=== PATIENT | male | born 1955 | race Two or more races ===

== ENCOUNTER 2024-01-14 09:45 | Outpatient (AMB) | payer MEDICARE, SELFPAY ==
--- NOTE | 2024-01-14 09:48 | HO.SPINEOV ---
Intake Intake Visit Reasons: neck pain Intake Note: Mr. Cohen is here today c/o Neck pain and upper back pain. Senior Pensions Administrator Required: No Allergies No Known Allergies Allergy (Verified 01/14/24 09:53) Assessment & Plan Assessment & Plan (1) Carpal tunnel syndrome on both sides: Code(s): G56.03 - Carpal tunnel syndrome, bilateral upper limbs (2) Cervical spondylosis: Code(s): M47.812 - Spondylosis without myelopathy or radiculopathy, cervical region Plan Dear colleague Thank you for referring Trey Cohen to the office today with a chief complaint of posterior neck pain and shoulder pain. HPI: This 68-year-old male developed posterior neck pain radiating to shoulders proximally 1 year ago. He denies radiation down his arms. No dexterity loss, no balance problems. He does have numbness of his hands that wakes him up at night. Shaking of his hands improves that symptom. He tried physical therapy for the neck pain without effect. No other therapies were done. PMH: Prediabetic rheumatoid arthritis, hypercholesterolemia Medications: Atorvastatin, methotrexate terazosin, Humira, Trulicity Allergies: NKDA Social history: Nonsmoker Physical Exam: Pleasant male. No restriction of the cervical spine. He points to pain diffusely in the posterior region of his neck. Spurling test is negative. No motor deficits. No sensory deficits. Tinel is positive of the bilateral wrist. No pathological reflexes Radiological Studies: MRI done at [facility] on 09/30/2023 shows diffuse cervical spondylosis, moderate C4-5 spinal stenosis multilevel foraminal stenosis from C3-C7. Impression/Plan: This patient is suffering from diffuse posterior neck pain without symptoms of radiculopathy or myelopathy. I will refer him for cervical injections to address the pain. I will also order an EMG to confirm the diagnosis bilateral carpal tunnel syndrome as the symptoms are constantly waking him up at night. Thank you for allowing me to participate in your patients care. total time spent was 50 minutes in counseling ,coordination of plan, personal review of imaging, surgical decision making and subsequent plan Ramo Pelayo MD, PhD Spine Fellowship Trained Neurosurgeon Director, [facility] Orders: Orders [place] electromyogram (EMG) Today G56.03 - Carpal tunnel syndrome, bilateral upper limbs Referrals Pain Management Referral M47.812 - Spondylosis without myelopathy or radiculopathy, cervical region Coding Level of Care Code New Pt Level 4 (26991) Diagnoses Carpal tunnel syndrome on both sides G56.03 Cervical spondylosis M47.812
== END 2024-01-14 11:21 | disposition home or self-care (01) ==
PROVIDERS: PCP Internal Medicine; Referring Provider Physician Assistant; Visit Provider Neurological Surgery
DX: G56.03 Carpal tunnel syndrome, bilateral upper limbs (principal); M47.812 Spondylosis without myelopathy or radiculopathy, cervical region
CPT/HCPCS: 99204

== ENCOUNTER → 2024-01-14 09:45 | Outpatient (BNVA) | payer MEDICARE, MEDICAID, SELFPAY | PROVIDERS: PCP Internal Medicine; Visit Provider Neurological Surgery | DX: G56.03 Carpal tunnel syndrome, bilateral upper limbs (principal); M47.812 Spondylosis without myelopathy or radiculopathy, cervical region | CPT/HCPCS: 99202 ==

== ENCOUNTER 2024-01-28 09:31 | Outpatient (AMB) | payer MEDICARE, SELFPAY ==
--- NOTE | 2024-01-28 09:33 | A.OFFVIS_ITS ---
Intake Vital Signs 3 01/28/24 09:34 Height 5 ft 11 in Weight 255 lb BMI 35.6 BP 140/82 H Blood Pressure Location Lt brachial Position Sitting Respiration 12 Pulse 88 Pulse Source Pulse Oximeter Pulse Oximetry (%) 96 Oxygen Delivery Method Room Air Intake Visit Reasons: Cervical Spondylosis Allergies No Known Allergies Allergy (Verified 01/28/24 09:46) Medication List - Last Reconciled 01/28/24 by Karina Velez LPN adalimumab (Humira(CF) Pen) 40 mg subcut Q2W atorvastatin 10 mg PO DAILY dulaglutide (Trulicity) mg subcut ergocalciferol (vitamin D2) 1,250 mcg PO QWEEK folic acid 1 mg PO DAILY methotrexate sodium 12.5 mg PO QWEEK sildenafil 100 mg PO tamsulosin 0.4 mg PO QPM HPI Cervical Spondylosis 2 HPI0 Details 68-year-old male who presents today to t he office for evaluation of cervical spondylolysis He reports having posterior neck pain that radiates to the shoulder, which started approximately a year ago. He denies any radiation down the arms. He admits to having numbness in the hands that wakes him up at night. Reports that shaking his hands will improve his symptoms.? He has tried physical therapy for the neck without any benefit. He denies trying any other therapies. He is interested in getting an injection to help with the pain. He describes numbness in the fingers, which he feels is due to carpal tunnel syndrome. He takes methotrexate for rheumatoid arthritis. He reports the pain is the worst at night when he is sleeping and rates it as 8 out of 10; it interferes with his sleep and wakes him up. He is unable to do his daily activities. Physical Exam Vital Signs: Last Vital Signs Pulse 88 01/28/24 09:34 Resp 12 01/28/24 09:34 BP 140/82 H 01/28/24 09:34 Pulse Ox 96 01/28/24 09:34 Oxygen Delivery Method Room Air 01/28/24 09:34 BMI result Body Mass Index 35.6 General: Appears afebrile. Alert and oriented. Mood and affect appropriate. Follows and participates in conversation appropriately. Respiratory effort is unlabored. Able to transition from sit to stand unassisted. Ambulates with bilaterally normal heel strike and toe off. Facet loading reproduces pain bilaterally in the neck. Lateral rotation from [id number] also reproduces neck pain in the shoulder. Results Reviewed Results Reviewed: Assessment & Plan Assessment & Plan (1) Cervical radiculitis: Code(s): M54.12 - Radiculopathy, cervical region (2) Cervical spondylosis: Code(s): M47.812 - Spondylosis without myelopathy or radiculopathy, cervical region Plan Will schedule him for C7-T1 interlaminar GABRIEL injection to the neck for ongoing cervical radicular symptoms. Discussed the risks and benefits of the procedure with the patient in detail. All questions were answered. The patient is on board with the plan. Justification for interventional therapy: ? Patient with average pain > 6/10 ? Patient has exhausted conservative therapy ? Patient unable to tolerate physical therapy due to pain Scribed for Dr. Chamberlain by Polo Strauss, director biomedical engineering, on 01/28/2024. I, Dr. Chamberlain, have personally reviewed and agree with the information entered by the scribe. Coding Level of Care Code New Pt Level 4 (70925) Diagnoses Cervical radiculitis M54.12 Cervical spondylosis M47.812
[2024-01-28 09:34] VITALS: BP 140/82; PULSE 88; RESP 12; O2SAT 96; BMI 35.6
== END 2024-01-28 10:20 | disposition home or self-care (01) ==
LOC: HO.PMC 09:32
PROVIDERS: PCP Internal Medicine; Referring Provider Neurological Surgery; Visit Provider Internal Medicine
DX: M54.12 Radiculopathy, cervical region (principal); M47.812 Spondylosis without myelopathy or radiculopathy, cervical region
CPT/HCPCS: 99204

== ENCOUNTER → 2024-01-28 09:31 | Outpatient (BNVA) | payer MEDICARE, SELFPAY | PROVIDERS: PCP Internal Medicine; Referring Provider Neurological Surgery; Visit Provider Internal Medicine | DX: M54.12 Radiculopathy, cervical region (principal); M47.812 Spondylosis without myelopathy or radiculopathy, cervical region | CPT/HCPCS: 99202 ==

== ENCOUNTER 2024-01-29 09:47 | Outpatient (REF) | payer MEDICARE, SELFPAY ==
--- NOTE | 2024-01-29 | EMG_ITS ---
Bilateral median and ulnar motor and sensory studies were performed. Bilateral radial sensory and median and lateral antecubital brachial sensory studies were performed and paraspinal muscles were tested with a needle. IMPRESSION: 1. [id number] bilateral median neuropathy across carpal tunnel. 2. Mild bilateral ulnar neuropathy across cubital tunnel. 3. 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 MD INGE Dodson/JESUS / [id number]
== END 2024-01-29 09:48 | disposition home or self-care (01) ==
LOC: HO.NEURO 09:47
PROVIDERS: PCP Internal Medicine; Visit Provider Neurological Surgery
DX: G56.03 Carpal tunnel syndrome, bilateral upper limbs (principal)
CPT/HCPCS: 95886; 95913

== ENCOUNTER 2024-02-26 06:20 | Outpatient (REF) | payer MEDICARE, SELFPAY ==
--- NOTE | ~2024-02-26 | FL_ITS ---
EXAMINATION: XR FLUOROSCOPY WITH IMAGES CLINICAL INFORMATION: Cervical radiculopathy. COMPARISON: None available. TECHNIQUE: Fluoroscopy Supervised By: Dr. Neil Chamberlain. Fluoroscopy Time: 0.1 minutes. Cumulative Dose: 2.67 mGy. Images: 3. FINDINGS: The submitted image shows an injection needle and injected epidural contrast at the lower cervical to upper thoracic levels. FL/FL guidance in treatment room IMPRESSION: Intraoperative fluoroscopic guidance is provided during cervical pain management procedure. Please see the patient's Operative Report for full procedural details.
== END 2024-02-26 06:21 | disposition home or self-care (01) ==
LOC: CF 06:20
PROVIDERS: Visit Provider Internal Medicine
DX: M54.12 Radiculopathy, cervical region (principal)
CPT/HCPCS: 62321; J1100; Q9967

== ENCOUNTER 2024-02-26 10:11 | Outpatient (AMB) | payer MEDICARE, SELFPAY ==
[2024-02-26 11:31] VITALS: BP 134/84; BP 138/80; PULSE 82; PULSE 88; RESP 16; RESP 18; O2SAT 93; BMI 35.6
--- NOTE | 2024-02-26 11:31 | MHC.OFFVIS ---
Vital Signs 02/26/24 11:31 02/26/24 11:31 Height 5 ft 11 in Weight 255 lb BMI 35.6 BP 134/84 138/80 Blood Pressure Location Lt brachial Lt brachial Position Sitting Sitting Respiration 18 16 Pulse 82 88 Pulse Source Pulse Oximeter Pulse Oximeter Pulse Oximetry (%) 93 93 Oxygen Delivery Method Room Air Comment Pre-Op Post-Op Intake Visit Reasons: C7-T1 interlaminar GABRIEL Allergies No Known Allergies Allergy (Verified 03/10/24 11:50) HPI HPI C7-T1 interlaminar GABRIEL: Details: Patient presents for scheduled procedure. Denies any recent cough, cold, infection, fever or other significant changes in medical history since last office visit. Physical Exam Vital Signs: Last Vital Signs Pulse 88 02/26/24 11:31 Resp 16 02/26/24 11:31 BP 138/80 02/26/24 11:31 Pulse Ox 93 02/26/24 11:31 Oxygen Delivery Method Room Air 02/26/24 11:31 BMI result Body Mass Index 35.6 Office Procedures Joint Injection/Drain Joint Injection/Drain Details: Interlaminar epidural steroid injection, C7-T1, midline After obtaining written consent, pre-procedure blood pressure and heart rate were stable and recorded in the nursing record. The patient was placed in the prone position. The cervicothoracic area was widely prepped with chloraprep and draped in sterile fashion. Fluoroscopic guidance was used to identify the desired interlaminar space and for needle placement. Subcutaneous 0.5% lidocaine was used to anesthetize the skin overlying the target. A 20-gauge Kelly needle was advanced to the epidural space using loss of resistance to contrast technique under fluoroscopic AP and contralateral oblique views. There was no evidence of heme or CSF and no paresthesias were elicited with needle placement. Confirmation of epidural needle placement was performed with 1cc of omnipaque 180. Next 3 ml 0.5% lidocaine mixed with 10 mg dexamethasone was administered epidurally with no pain elicited on injection. The needle tract tubing was then cleared with 1 ml of 0.5% lidocaine. The needle was removed, skin cleansed and a sterile bandage was applied. The patient tolerated the procedure well and no complications were encountered. Following the procedure the patient's vital signs were stable. The patient was discharged home in good condition with post-procedural instructions. Time Out: Immediately prior to the procedure, the following was verbally confirmed that there is a signed consent form and that the correct patient, planned procedure, site and side are consistent with documentation and that necessary equipment and/or blood products are available prior to the start of the case. Complications: none EBL: <5 cc Coding 74603 - Cervical Epidural/Interlaminar with fluoroscopy Procedure code (CPT) selection complete Assessment & Plan Assessment & Plan (1) Cervical radiculitis: Code(s): M54.12 - Radiculopathy, cervical region Category: Medical Plan Patient is status post midline C7-T1 interlaminar GABRIEL. Patient tolerated procedure well and was discharged home in stable condition with discharge instructions. All questions were answered. We will follow-up via telephone or in clinic to assess response to therapy. A follow-up appointment was made during today's visit. Orders: Orders FL guidance in treatment room 02/26/24 M54.12 - Radiculopathy, cervical region Coding Level of Care Code Procedure Only Diagnoses Cervical radiculitis M54.12 CPT Codes Coding - Joint 10: 85406 - Cervical Epidural/Interlaminar with fluoroscopy ([id number])
== END 2024-02-26 11:32 | disposition home or self-care (01) ==
LOC: HO.PMCPRC 10:11
PROVIDERS: PCP Internal Medicine; Visit Provider Internal Medicine
DX: M54.12 Radiculopathy, cervical region (principal)
CPT/HCPCS: 62321

== ENCOUNTER 2024-03-10 11:11 | Outpatient (AMB) | payer MEDICARE, SELFPAY ==
--- NOTE | 2024-03-10 11:49 | HO.SPINEOV ---
Intake Visit Reasons: discuss EMG & Surgery Intake Note: Mr. Cohen is here today to discuss EMG & Surgery. Big Data Analytics Lead Required: No Allergies No Known Allergies Allergy (Verified 03/10/24 11:50) Assessment & Plan Assessment & Plan (1) Carpal tunnel syndrome on both sides: Code(s): G56.03 - Carpal tunnel syndrome, bilateral upper limbs Category: Medical Plan On 09/09/2024 I saw for follow-up Trey Cohen. The EMG confirmed bilateral carpal tunnel syndrome. The right side is more affected than the left side. He also states that he has a trigger finger in both hands. I would like to refer him to Dr. Jauregui, hand surgeon for further evaluation as I am not dealing with trigger fingers. She can also treat him for the carpal tunnel syndrome. He requested a night splint for his right wrist which we prescribed. The symptoms are pretty bad and therefore I would like him to be seen assoon as possible. I spent 25 minutes in his consult discussing the results an ordering test. Ramo Pelayo MD, PhD Spine Fellowship Trained Neurosurgeon Director, [facility] Orders: Referrals Hand Surgery Referral Ramo Pelayo MD, PhD G56.03 - Carpal tunnel syndrome, bilateral upper limbs Medications: New miscellaneous medical supply Carpal tunnel wrist splint as directed; LOLITA: 99 CPT10: G56. 00 1 ea 0RF CARPAL TUNNEL SYNDROME SAMANTHA Barker miscellaneous medical supply Right carpal tunnel wrist splint as directed; LOLITA: 99 CPT10: G56. 00 1 ea 0RF RIGHT CARPAL TUNNEL SYNDROME SAMANTHA Barker Coding Level of Care Code Est Pt Level 3 (05052) Diagnoses Carpal tunnel syndrome on both sides G56.03
== END 2024-03-10 12:08 | disposition home or self-care (01) ==
PROVIDERS: PCP Internal Medicine; Visit Provider Neurological Surgery
DX: G56.03 Carpal tunnel syndrome, bilateral upper limbs (principal)
CPT/HCPCS: 99213

== ENCOUNTER → 2024-03-10 11:11 | Outpatient (BNVA) | payer MEDICARE, SELFPAY | PROVIDERS: PCP Internal Medicine; Visit Provider Neurological Surgery | DX: G56.03 Carpal tunnel syndrome, bilateral upper limbs (principal) | CPT/HCPCS: 99212 ==

== ENCOUNTER 2024-03-26 10:51 | Outpatient (AMB) | payer MEDICARE, SELFPAY ==
--- NOTE | 2024-03-26 11:04 | A.OFFVIS_ITS ---
Vital Signs 03/26/24 11:05 Height 5 ft 11 in Weight 258 lb BMI 36.0 BP 133/90 H Blood Pressure Location Lt brachial Position Sitting Respiration 14 Pulse 94 Pulse Source Pulse Oximeter Pulse Oximetry (%) 93 Oxygen Delivery Method Room Air Intake Visit Reasons: s/p C7-T1 interlaminar GABRIEL Construction Site Crossing Guard Required: Yes Construction Site Crossing Guard Name: Maris #[id number] Allergies No Known Allergies Allergy (Verified 03/26/24 11:07) Medication List - Last Reconciled 03/26/24 by Karina Velez LPN adalimumab (Humira(CF) Pen) 40 mg subcut Q2W atorvastatin 10 mg PO DAILY dulaglutide (Trulicity) mg subcut ergocalciferol (vitamin D2) 1,250 mcg PO QWEEK folic acid 1 mg PO DAILY methotrexate sodium 12.5 mg PO QWEEK miscellaneous medical supply Right carpal tunnel wrist splint as directed; LOLITA: 99 CPT10: G56. 00 sildenafil 100 mg PO tamsulosin 0.4 mg PO QPM HPI HPI s/p C7-T1 interlaminar GABRIEL: Details: 68-year-old male who presents today to the office for a status post C7-T1 interlaminar GABRIEL. The patient reports 95% relief following the procedure ongoing. He is doing well. He has not seen Dr. Jones for his carpal tunnel syndrome. He has difficulty sleeping due to pain from the carpal tunnel. He has scheduled appointment with Dr. Jones later this month. Past procedures 02/26/24: Interlaminar epidural steroid injection, C7-T1, midline: 95% relief. Review of Systems Const All systems reviewed & are unremarkable except as noted in HPI and below Physical Exam Vital Signs: Last Vital Signs Pulse 94 03/26/24 11:05 Resp 14 03/26/24 11:05 BP 133/90 H 03/26/24 11:05 Pulse Ox 93 03/26/24 11:05 Oxygen Delivery Method Room Air 03/26/24 11:05 BMI result Body Mass Index 36.0 General: Appears afebrile. Alert and oriented. Mood and affect appropriate. Follows and participates in conversation appropriately. Respiratory effort is unlabored. Able to transition from sit to stand unassisted. Ambulates with bilaterally normal heel strike and toe off. Results Reviewed Results Reviewed: No imaging is available for review. Assessment & Plan Assessment & Plan (1) Cervical radiculitis: Code(s): M54.12 - Radiculopathy, cervical region Category: Medical Plan The patient has 95% ongoing relief from the last procedure. He will follow up when his pain return or worsen and we can repeat the cervical GABRIEL again. I advised him to keep his appointment with hand surgeon later this month for persistent hand symptoms secondary to carpal tunnel syndrome. Scribed for Dr. Chamberlain by Avery Zabala, medical numerical control operator, on 03/26/2024. I, Dr. Chamberlain, have personally reviewed and agree with the information entered by the scribe. Coding Level of Care Code Est Pt Level 3 (94196) Diagnoses Cervical radiculitis M54.12
[2024-03-26 11:05] VITALS: BP 133/90; PULSE 94; RESP 14; O2SAT 93; BMI 36.0
== END 2024-03-26 11:10 | disposition home or self-care (01) ==
PROVIDERS: PCP Internal Medicine; Visit Provider Internal Medicine
DX: M54.12 Radiculopathy, cervical region (principal)
CPT/HCPCS: 99213

== ENCOUNTER → 2024-03-26 10:51 | Outpatient (BNVA) | payer MEDICARE, SELFPAY | PROVIDERS: PCP Internal Medicine; Visit Provider Internal Medicine | DX: M54.12 Radiculopathy, cervical region (principal) | CPT/HCPCS: 99212 ==

== ENCOUNTER 2024-04-07 10:42 | Outpatient (AMB) | payer MEDICARE, SELFPAY ==
--- NOTE | 2024-04-07 10:43 | MHC.OFFVIS ---
Vital Signs 04/07/24 10:59 Height 5 ft 11 in Weight 258 lb BMI 36.0 Intake Visit Reasons: BARKEEP/Carpal tunnel syndrome, bilateral upper limbs Intake Note: Trey a 68 year old right hand dominant male who presents today as a new patient for an evaluation of bilateral hand. EMG done. Patient reports numbness and tingling in hands for about 2 months with the right hand being the worse. States pain, numbness and tingling is increasing. Hx of injections in hands that provides him with relief. He also states that he has locking and catching in his left thumb for 2 months and right middle finger for a while. He would like to discuss surgical intervention. Denies injury. Patient denied wage and salary administrator services and requested his daughter to interpret for todays visit. Allergies No Known Allergies Allergy (Verified 04/07/24 10:59) HPI HPI BARKEEP/Carpal tunnel syndrome, bilateral upper limbs: Details: 68-year-old right hand dominant male who presents to the office today with his daughter for evaluation of bilateral hands. He reports he has worsening numbness and tingling in his bilateral hands for about 2 months that is worse on the right hand. He also c/o catching and locking in her left thumb for 2 months and recently in her right middle finger as well. He has tried injections in the past that provided him relief. He wears wrist braces at night. He has not had any injury in the past. PENDING SALE TO [facility] Surgical History History of bilateral knee replacement Social History (Updated 04/07/24 @ 10:57 by TUCKER Hunt) Patient Tobacco Use Status: Former Tobacco user Current occupational status: unemployed Current occupation: right hand dominant Review of Systems Const All systems reviewed & are unremarkable except as noted in HPI and below Physical Exam Vital Signs: BMI result Body Mass Index 36.0 Const General: cooperative, healthy appearing, comfortable, no acute distress, well developed and alert Orientation/consciousness: patient oriented x3 HEENT Head: Yes normal to inspection, Yes normocephalic and Yes atraumatic Eyes General: appearance normal, both eyes and all related structures Resp Effort & Inspection: normal respiratory effort and able to speak in complete sentences Cardio Rate: regular rate Peripheral pulses: Peripheral pulses 2+ throughout GI Palpation (GI): Soft to palpation Skin Lesions: no lesions Rashes: no rashes Neuro General: patient oriented x3 Extrem Other: Bilateral wrist: Normal to inspection.? Tenderness over the carpal canal.? Numbness and tingling over the median nerve distribution of the right hand.? Able to make a full fist and fully extend all fingers.? Positive Tinel's. Right elbow Mild Tenderness over the medial aspect of the elbow and Positive tinels along the cubital tunnel. He has good ROM of the elbow, no pain with supination or pronation. Numbness and tingling over the ulnar nerve distribution of the left hand. Right middle finger Tender nodule along the A1 ovidio with active catching and locking. NVI. Results Reviewed Results Reviewed: IMPRESSION: 1. [id number]-[id number] bilateral median neuropathy across carpal tunnel. 2. Mild bilateral ulnar neuropathy across cubital tunnel. 3. 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 Assessment & Plan Assessment & Plan (1) Carpal tunnel syndrome on both sides: Code(s): G56.03 - Carpal tunnel syndrome, bilateral upper limbs Category: Medical (2) Trigger finger, right middle finger: Code(s): M65.331 - Trigger finger, right middle finger Category: Medical Plan We discussed options which include conservative vs operative treatment. Since the patient has been symptomatic for several months and it is impacting their daily life, the decision was made to undergo right carpal tunnel release. We discussed risk, benefits and alternatives. Risk including but not limited to infection, weakness, stiffness, ongoing numbness or tingling. The patient does understand all this and would like to proceed with right carpal and cubital tunnel release with right middle finger trigger release Dr. Jones. They will be booked accordingly. Patient Instructions: Scribed for Ana Paula Hinojosa PA-C, by Charlie Murphy medical office representative, on 04/07/2024 at 11:00 AM EST.? I, Ana Paula Hinojosa PA-C, have personally reviewed and agree with the information entered by the scribe. Coding Level of Care Code New Pt Level 4 (79127) Diagnoses Carpal tunnel syndrome on both sides G56.03 Trigger finger, right middle finger M65.331
[2024-04-07 10:59] VITALS: BMI 36.0
== END 2024-04-07 14:50 | disposition home or self-care (01) ==
PROVIDERS: PCP Internal Medicine; Visit Provider Physician Assistant
DX: G56.03 Carpal tunnel syndrome, bilateral upper limbs (principal); M65.331 Trigger finger, right middle finger
CPT/HCPCS: 99204

== ENCOUNTER → 2024-04-07 10:42 | Outpatient (BNVA) | payer MEDICARE, SELFPAY | PROVIDERS: PCP Internal Medicine; Visit Provider Physician Assistant | DX: G56.03 Carpal tunnel syndrome, bilateral upper limbs (principal); M65.312 Trigger thumb, left thumb; M65.331 Trigger finger, right middle finger | CPT/HCPCS: 99202 ==

== ENCOUNTER 2024-05-19 11:11 | Outpatient (AMB) | payer MEDICARE, SELFPAY ==
--- NOTE | 2024-05-19 11:43 | A.OFFVIS_ITS ---
Vital Signs 05/19/24 11:53 Handedness Right Intake Visit Reasons: Preop RT CTR, cubital jose cruz, MF trigger 05/27/24 AR Intake Note: Trey is a 68 year old male who presents today for a pre op appointment for his right CTR, cubital jose cruz, MF trigger release 05/27/24 AR. Allergies No Known Allergies Allergy (Verified 05/19/24 11:49) HPI HPI Preop RT CTR, cubital jose cruz, MF trigger 05/27/24 AR: Details: Trey is a 68 year old right hand dominant Diabetic Chadian speaking man who presents to discuss his carpal & cubital tunnel syndrome. He is seen today with his son, who acts as a cook short order He complains of constant numbness in the median nerve distribution of his right hand. Symptoms worse at night. He denies having any problems with numbness in the small finger. He also complains of painful locking & catching of his middle finger. His son says recently he had numbness that was so bothersome that he did not sleep for 5 days and had to be taken to the emergency room. He complains of numbness in the median nerve distribution of his left hand. Symptoms intermittent, but daily, worse at night. He denies any numbness in the small finger. He says this is not as bothersome as the right. He also complains of pain in his volar medial forearm, worse with activities. He is a Diabetic, he does not know his mot recent HgA1c but his son says his mother manages both hers & his Diabetes closely. He is on Humira and Methotrexate for RA. Last dose of Humira was on 05/10/2024, and it is dosed every 14 days [facility] Surgical History History of bilateral knee replacement Social History Patient Tobacco Use Status: Former Tobacco user Current occupational status: unemployed Current occupation: right hand dominant Review of Systems Const All systems reviewed & are unremarkable except as noted in HPI and below Physical Exam Const General: cooperative, healthy appearing and no acute distress Orientation/consciousness: patient oriented x3 HEENT Head: Yes normocephalic and Yes atraumatic Eyes EOM: EOMs intact bilaterally Resp Effort & Inspection: normal respiratory effort and able to speak in complete sentences Cardio Jugular venous distension: no JVD Skin General skin exam: turgor normal Rashes: no rashes Neuro General: patient oriented x3 Extrem Other: Evaluation of Right Upper Extremity: The patient is alert, oriented, and in no acute distress Neuro: Dense numbness in the median nerve distribution. Normal sensation in the ulnar nerve distribution No thenar or intrinsic wasting Good APB muscle belly firing and good finger cross Neg Tinel's sign at the elbow Vascular: Cap refill brisk ROM: He can make a fist and extend all his digits Visible and palpable locking & catching of the middle finger Tender over the middle finger a1 ovidio Skin: No lacerations or abrasions. General: No Ecchymosis. No Erythema or evidence of infection. Tender over the medial epicondyle & distal to the medial epicondyle Nerve Conduction Study: IMPRESSION: 1. [id number] bilateral median neuropathy across carpal tunnel. 2. Mild bilateral ulnar neuropathy across cubital tunnel. 3. 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 India Bryant MD 01/29/2024 Psych Appearance: grossly normal Affect: normal affect Attitude: cooperative Assessment & Plan Assessment & Plan (1) Trigger finger, right middle finger: Code(s): M65.331 - Trigger finger, right middle finger Category: Medical (2) Carpal tunnel syndrome on both sides: Code(s): G56.03 - Carpal tunnel syndrome, bilateral upper limbs Category: Medical (3) Cubital tunnel syndrome, bilateral: Code(s): G56.23 - Lesion of ulnar nerve, bilateral upper limbs Category: Medical (4) Diabetes mellitus: Code(s): E11.9 - Type 2 diabetes mellitus without complications Category: Medical Plan Assessment & Plan: 1. Right carpal tunnel syndrome, mild-moderate With dense numbness worse at night This is his primary complaint today 2. Right middle finger trigger finger I educated him and his son about these conditions I discussed operative and non-operative treatment options The patient would like to proceed with surgery The risks and benefits of operative treatment were discussed with the patient and the patient wishes to proceed with surgery. These risks include, but are not limited to risk of damage to blood vessels, nerves, tendons, infection, recurrence, incomplete relief of preoperative symptoms, persistent pain, possible need for further surgery and the risks associated with regional blocks and anesthesia. The plan is to take the patient to the operating room sometime on 05/27/24 for the following procedures: 1. Right carpal tunnel release, under local 2. Right middle finger trigger release, under local All of the preoperative paperwork including the consent was reviewed today. All the patient's questions were answered. The patient understands that they will be contacted by our mainspring fabrication supervisor soon to schedule this procedure He denies blood thinners, asthma, heart, lung, kidney issues He is a Diabetic, and does not know his last HgA1c They will need an updated HgA1c that is <8.1% in order to proceed with surgery, and they expressed understanding He is on Humira for RA, his last dose was on 05/10/24. He will skip his next dosage on 05/24/24 in order to proceed with surgery, and will remain off of his Humira until after his first post-op appointment 3. Right cubital tunnel syndrome, mild No complaints today 4. Left carpal tunnel syndrome, mild-moderate Symptoms intermittent, but daily, worse at night 5. Left cubital tunnel syndrome, mild No complaints today He will follow up to discuss treatment options when he has recovered from surgery. Scribed for Bobbi Jones MD by Christiano Samuel, medical scientific officer, on 05/19/24 at 12:05 PM, EST. Coding Level of Care Code Est Pt Level 4 (33223) Diagnoses Trigger finger, right middle finger M65.331 Carpal tunnel syndrome on both sides G56.03 Cubital tunnel syndrome, bilateral G56.23 Diabetes mellitus E11.9
== END 2024-05-19 12:19 | disposition home or self-care (01) ==
PROVIDERS: PCP Internal Medicine; Visit Provider Orthopaedic Surgery
DX: M65.331 Trigger finger, right middle finger (principal); G56.03 Carpal tunnel syndrome, bilateral upper limbs; G56.23 Lesion of ulnar nerve, bilateral upper limbs; E11.9 Type 2 diabetes mellitus without complications
CPT/HCPCS: 99024

== ENCOUNTER → 2024-05-19 11:11 | Outpatient (BNVA) | payer MEDICARE, SELFPAY | PROVIDERS: PCP Internal Medicine; Visit Provider Orthopaedic Surgery | DX: Z01.818 Encounter for other preprocedural examination (principal); G56.03 Carpal tunnel syndrome, bilateral upper limbs; G56.23 Lesion of ulnar nerve, bilateral upper limbs; M65.331 Trigger finger, right middle finger; E11.9 Type 2 diabetes mellitus without complications | CPT/HCPCS: 99212 ==

== ENCOUNTER 2024-05-27 09:43 | Day surgery (SDC) | payer MEDICARE, SELFPAY ==
--- NOTE | 2024-05-26 09:34 | HO.ANESPROP2 ---
HPI - Anesthesia Eval Consult details Narrative: 68yo M for Right Carpal Tunnel Release, Middle finger Trigger Release Anesthesia Pre-Procedure Meds Is the patient on any of the following meds?: GLP1/DPP4 PMFSH Active Problems Active Problems: All Active Problems Rheumatoid arthritis (Acute) Diabetes mellitus (Acute) Cubital tunnel syndrome, bilateral (Acute) Trigger finger, right middle finger (Acute) Cervical radiculitis (Acute) Cervical spondylosis (Acute) Carpal tunnel syndrome on both sides (Acute) Past Medical History Medical History (Updated 05/26/24 @ 09:35 by Rosaura Raza NP) Rheumatoid arthritis Diabetes mellitus Surgical History Surgical History History of bilateral knee replacement Social History Social History Patient Tobacco Use Status: Former Tobacco user Current occupational status: unemployed Current occupation: right hand dominant Meds Allergies Allergy/AdvReac Type Severity Reaction Status Date / Time No Known Allergies Allergy Verified 05/19/24 11:49 Home Medications ?Medication ?Instructions ?Recorded ?Confirmed ?Last Taken ?Type atorvastatin 10 mg tablet 10 mg PO DAILY 01/14/24 03/26/24 Unknown History methotrexate sodium 2.5 mg tablet 12.5 mg PO QWEEK 01/14/24 03/26/24 Unknown History tamsulosin 0.4 mg capsule 0.4 mg PO QPM 01/14/24 03/26/24 Unknown History adalimumab 40 mg/0.4 mL 40 mg subcut Q2W 01/28/24 03/26/24 Unknown History subcutaneous pen kit (Humira(CF) Pen) dulaglutide 0.75 mg/0.5 mL mg subcut 01/28/24 03/26/24 Unknown History subcutaneous pen injector (Trulicity) ergocalciferol (vitamin D2) 1,250 1,250 mcg PO QWEEK 01/28/24 03/26/24 Unknown History mcg (50,000 unit) capsule folic acid 1 mg tablet 1 mg PO DAILY 01/28/24 03/26/24 Unknown History sildenafil 100 mg tablet 100 mg PO 01/28/24 03/26/24 Unknown History Assessment and Plan Assessment Anesthesia Assessment: Chart Reviewed
[2024-05-27 11:14] VITALS: BMI 35.7
[2024-05-27 11:18] VITALS: BP 135/95; PULSE 80; RESP 16; TEMP 36.7; O2SAT 93
--- NOTE | 2024-05-27 12:51 | MHC.SHP ---
Pre-Procedural Eval Section A - 24 Hr Update-Section A only Date of Service: 05/27/24 The patient is an INPATIENT: No Changes since office visit: No Cold of Flu in the past 2 weeks, No New Medical Problems, No Changes in Medication and No Patient answered all questions The patient has been examined within 24 hours of the surgical procedure. The History & Physical has been completed within 30 days and I have reviewed it.: Yes Section B - Complete if H&P > 30 days Chief Complaint: carpal tunnel,trigger finger, Allergies: Allergies Allergy/AdvReac Type Severity Reaction Status Date / Time No Known Allergies Allergy Verified 05/27/24 11:18 Plan I have reviewed the history and physical and performed a pertinent physical examination on my patient. No changes have occurred unless specified. Time Spent With Patient Time: Total time managing care of this patient today ____ minutes.
--- NOTE | 2024-05-27 12:52 | P.OP_ITS ---
Operative Note Operative Note Date of Service: 05/27/24 Narrative: Preop diagnosis: 1. Right Carpal tunnel syndrome 2. Right middle finger trigger finger Postop diagnosis: same Procedure: 1. Right Carpal tunnel release 2. Right middle finger trigger release Surgeon: Bobbi Jones MD Utility Worker Forge: Robert Pringle Anesthesia: local block using 1% lidocaine with epinephrine Findings: Thickened transverse carpal ligament. No locking or catching after A1 ovidio release EBL: Less than 5 mL Specimens: None Complications: None Disposition: Brought to recovery room in stable condition Plan: Follow-up for 10-14 days for wound check and suture removal Indications: The patient is 68 years old, with right carpal tunnel syndrome and right middle finger trigger finger that has been unresponsive to nonoperative management. The risks and benefits of operative treatment including but not limited to risk of damage to blood vessels, nerves, tendons, infection, persistent pain, persistent symptoms, or possible need for additional surgery were discussed with the patient and the patient wishes to proceed with surgery. Procedure: Once consent was obtained a local block was performed using a combination of 1% lidocaine with epinephrine. The patient was then brought back to the operating suite and placed on the operative table in supine position. The right upper extremity was prepped and draped in a standard surgical fashion. Once assured that we had a good block, a 1.5 cm oblique incision was made centered over the A1 ovidio of the right middle finger . The incision was made through the skin to the subcutaneous tissues using a #15 blade. Careful dissection was made down to the level of the A1 ovidio using tenotomy scissors, with care being taken to protect the nearby neurovascular structures. A longitudinal incision was made in the A1 ovidio 1st using a #15 blade, then using tenotomy scissors under direct visualization. The A1 ovidio was noted to be thickened. Following our A1 ovidio release, we no longer saw any locking or catching of the digit with flexion and extension. Once assured that we had a good block, a 2.0 cm longitudinal incision was made centered over the right carpal tunnel. The incision was made through the skin to the subcutaneous tissues using a #15 blade. Dissection was made down to the level of the transverse carpal ligament with care being taken to protect the palmar cutaneous nerve. Once the transverse carpal ligament was clearly visualized, a longitudinal incision was made in the transverse carpal ligament 1st using a #15 blade, then using tenotomy scissors under direct visualization. Care was taken to look for and protect the motor branch of the median nerve when seen in this area. Once satisfied with our carpal tunnel release the wound was copiously irrigated with normal saline and hemostasis was obtained with a brief period of local pressure. The skin edges were reapproximated with some 5.0 nylon suture material and a sterile dressing was applied. The patient appears to have tolerated the procedure well and with no complications. All digits were well vascularized at the conclusion of the case.
[2024-05-27 14:26] VITALS: BP 143/85; PULSE 79; RESP 18
== END 2024-05-27 14:28 | disposition home or self-care (01) ==
PROVIDERS: PCP Internal Medicine; Visit Provider Orthopaedic Surgery
PROC: (CPT 64721; principal; 2024-05-27 12:10)
PROC: (CPT 26055; 2024-05-27 12:10)
DX: M65.331 Trigger finger, right middle finger (principal); G56.01 Carpal tunnel syndrome, right upper limb; R20.0 Anesthesia of skin; M06.9 Rheumatoid arthritis, unspecified; E11.9 Type 2 diabetes mellitus without complications; Z79.620 Long term (current) use of immunosuppressive biologic; Z87.891 Personal history of nicotine dependence; Z56.0 Unemployment, unspecified
CPT/HCPCS: 26055; 64721; J0171

== ENCOUNTER → 2024-05-27 09:43 | Outpatient (BNV) | payer MEDICARE, SELFPAY | PROVIDERS: PCP Internal Medicine; Visit Provider Orthopaedic Surgery | DX: G56.01 Carpal tunnel syndrome, right upper limb (principal); M65.331 Trigger finger, right middle finger | CPT/HCPCS: 26055; 64721 ==

== ENCOUNTER 2024-06-09 09:10 | Outpatient (AMB) | payer MEDICARE, SELFPAY ==
--- NOTE | 2024-06-09 09:31 | A.OFFVIS_ITS ---
Vital Signs 06/09/24 09:34 Height 5 ft 11 in Weight 256 lb BMI 35.7 Handedness Right Intake Visit Reasons: PO RT CTR/RF trigger 05/27/24 AR Intake Note: Trey is 68 year old right hand dominant male who presents today for a post op appointment s/p right CTR/MF trigger 05/27/24 AR. Patient reports he is still having numbness in his right thumb, pioneer, and middle finger. He states that his middle finger hasn't straightened out yet and still having pain. Allergies No Known Allergies Allergy (Verified 06/09/24 09:34) HPI HPI PO RT CTR/RF trigger 05/27/24 AR: Details: Patient is a 68-year-old male who presents for 2 week postoperative evaluation status post right carpal tunnel release and right middle finger trigger finger release, DOS 05/27/[address] Jones. Today, the patient reports he is stil l experiencing constant numbness in the median nerve distribution of his right hand, but reports that his pain has subsided. The patient also reports that he has been unable to extend his right middle finger fully since DOS. Patient reports that he has not experienced any locking or catching in flexion of the middle finger since DOS. Patient has no other acute complaints or concerns at this time [facility] Medical History (Updated 06/09/24 @ 10:12 by SAMANTHA Richards) Rheumatoid arthritis Diabetes mellitus Surgical History History of bilateral knee replacement Social History (Updated 06/09/24 @ 09:35 by Viv Hernandez) Alcohol intake: current Alcohol intake frequency: holidays/special occasions only Patient Tobacco Use Status: Former Tobacco user Current occupational status: unemployed Current occupation: right hand dominant Physical Exam Vital Signs: BMI result Body Mass Index 35.7 Extrem Other: Neuro: Decreased sensation in the median nerve distribution of the right hand. No thenar or intrinsic wasting. Good APB muscle firing and good finger cross. Vascular: Capillary refill brisk. ROM: With encouragement, patient is able to flex and extend all digits of the right hand Patient does report discomfort with full extension of the right middle finger, particularly in the PIP joint Patient is able to put his hand flat on a table with encouragement Skin: Well-healing incisions on the right volar wrist and at the A1 ovidio of the right middle finger, no evidence of discharge or infection noted General: No ecchymosis. No erythema or evidence of infection. Assessment & Plan Assessment & Plan (1) Trigger finger, right middle finger: Code(s): M65.331 - Trigger finger, right middle finger Category: Medical (2) Carpal tunnel syndrome, right: Code(s): G56.01 - Carpal tunnel syndrome, right upper limb Category: Medical Plan 1. Carpal tunnel syndrome, right, status post carpal tunnel release DOS 05/27/24 Patient is recovering well postoperatively Patient is educated about the typical recovery course Patient is re-educated that, due to experiencing dense numbness prior to surgery, there is an increased chance that he will not regain normal sensation in his right hand. Patient is educated that if he does get normal sensation back, it will likely take weeks or months to return Patient is amenable to this Sutures removed today, Steri-Strips applied 2. Right middle finger trigger finger, status post trigger release DOS 05/27/2024 Patient is recovering well postoperatively Patient is educated about the typical recovery course Patient is referred to occupational hand therapy to work on range of motion of the right middle finger secondary to stiffness Patient does report improvement of his stiffness with active and passive full extension of the right middle finger in the office today Patient will follow-up in 2 weeks for [id number] check of the right hand, sooner with any acute concerns Orders: Orders OT Evaluation and Treatment Today M65.331 - Trigger finger, right middle finger Coding Level of Care Code Global (23577) Diagnoses Trigger finger, right middle finger M65.331 Carpal tunnel syndrome, right G56.01
[2024-06-09 09:34] VITALS: BMI 35.7
== END 2024-06-09 10:08 | disposition home or self-care (01) ==
PROVIDERS: PCP Internal Medicine
DX: M65.331 Trigger finger, right middle finger (principal); G56.01 Carpal tunnel syndrome, right upper limb
CPT/HCPCS: 99024

== ENCOUNTER → 2024-06-09 09:10 | Outpatient (BNVA) | payer MEDICARE, SELFPAY | PROVIDERS: PCP Internal Medicine; Visit Provider Physician Assistant | DX: G56.01 Carpal tunnel syndrome, right upper limb (principal); R20.0 Anesthesia of skin; M65.331 Trigger finger, right middle finger | CPT/HCPCS: 99212 ==

== ENCOUNTER 2024-06-21 10:05 | Outpatient (AMB) | payer MEDICARE, SELFPAY ==
--- NOTE | 2024-06-21 10:33 | MHC.OFFVIS ---
Intake Visit Reasons: PO RT CTR/RF trigger 05/27/24 AR Intake Note: Trey is 68 year old right hand dominant male who presents today for a post op appointment s/p right CTR/MF trigger 05/27/24 AR. Patient reports he is still having pain in his fingers and he is still having numbness in his right thumb, index finger and middle finger. However he feels that symptoms has gotten a little better but her thinks since her got an injection in his neck he feels like that is what is causing his numbness in his fingers. He mentions that his ring finger sometimes gets numb. He expresses that he would like to hold of on his left hand surgery. Senior Data Warehouse Architect Name: TUCKER Paniagua/RENEA Allergies No Known Allergies Allergy (Verified 06/09/24 09:34) HPI Comments Details: Patient is a 68-year-old male who presents for postoperative evaluation status post right carpal tunnel release and right middle finger trigger release, DOS 05/27/[address] Jones. Today, the patient reports that he is doing well, and the incision sites are still healing very well. Patient does report that he continues to experience constant numbness and tingling in the median nerve distribution of the right hand, but that he was experiencing dense numbness prior to surgery. The patient also has a significant history of cervical radiculitis and cervical spondylosis, so he feels that his numbness may also be caused by that. The patient also reports that he would like to hold off on any potential surgical intervention for the issues he has in his left hand until the right hand is fully healed. No other complaints or concerns at this time. [facility]LY [facility] Medical History (Updated 06/21/24 @ 11:19 by SAMANTHA Richards) Rheumatoid arthritis Diabetes mellitus Surgical History History of bilateral knee replacement Social History Alcohol intake: current Alcohol intake frequency: holidays/special occasions only Patient Tobacco Use Status: Former Tobacco user Current occupational status: unemployed Current occupation: right hand dominant Review of Systems Const All systems reviewed & are unremarkable except as noted in HPI and below Physical Exam Extrem Other: Neuro: Decreased sensation in the median nerve distribution of the right hand. Normal sensation to all other digits in the right hand today. Diminished sensation in the median nerve distribution of the of the left hand today. No thenar or intrinsic wasting. Good APB muscle firing and good finger cross. Vascular: Capillary refill brisk. ROM: Range of motion of the right hand limited Patient is approximately 0.5 cm from a full closed fist on the right side secondary to stiffness Patient is also unable to extend the right middle finger fully secondary to stiffness There is now visible and palpable locking and catching of the right thumb Skin: Well-healing incision sites over the volar right wrist and over the volar A1 ovidio of the right middle finger General: No ecchymosis. No erythema or evidence of infection. Assessment & Plan Assessment & Plan (1) Carpal tunnel syndrome on both sides: Code(s): G56.03 - Carpal tunnel syndrome, bilateral upper limbs Category: Medical (2) Trigger finger, right middle finger: Code(s): M65.331 - Trigger finger, right middle finger Category: Medical (3) Trigger thumb, right thumb: Code(s): M65.311 - Trigger thumb, right thumb Category: Medical (4) Trigger finger, left middle finger: Code(s): M65.332 - Trigger finger, left middle finger Category: Medical Plan 1. Carpal tunnel syndrome, right, status post carpal tunnel release, with dense numbness preoperatively Dense numbness tiday 2. Right middle finger trigger finger, status post trigger release DOS 05/27/2024 Patient is recovering well postoperatively Patient is educated about the typical recovery course Patient is once again educated about the possibility of not getting normal sensation back even after surgery, secondary to having dense numbness prior to the procedure. At last visit, patient was referred to occupational hand therapy for strengthening and range of motion of the right hand, and has his 1st appointment at 1500 today Patient is advised that, starting of this week, he can begin to ramp up the amount of weight he is putting into his right hand Patient is amenable to this plan Patient will follow-up p.r.n. with any acute concerns 3. Carpal tunnel syndrome, left Intermittent, but daily 4. Left middle finger trigger finger 5. Right trigger thumb Patient would like to hold off on any further intervention for these issues at this time until he feels that his function has returned to baseline after surgery. Patient is educated to not wait until he has dense numbness in his left hand, as this can lead to increased risk of not getting normal sensation back after surgery Patient understands this and is amenable to this plan Patient will follow-up whenever he is ready to explore any potential treatment options for these conditions. Coding Level of Care Code Global (12291) Diagnoses Carpal tunnel syndrome on both sides G56.03 Trigger finger, right middle finger M65.331 Trigger thumb, right thumb M65.311 Trigger finger, left middle finger M65.332
== END 2024-06-21 10:59 | disposition home or self-care (01) ==
PROVIDERS: PCP Internal Medicine
DX: G56.03 Carpal tunnel syndrome, bilateral upper limbs (principal); M65.331 Trigger finger, right middle finger; M65.311 Trigger thumb, right thumb; M65.332 Trigger finger, left middle finger
CPT/HCPCS: 99024

== ENCOUNTER → 2024-06-21 10:05 | Outpatient (BNVA) | payer MEDICARE, SELFPAY | PROVIDERS: PCP Internal Medicine | DX: G56.02 Carpal tunnel syndrome, left upper limb (principal); M65.311 Trigger thumb, right thumb; M65.332 Trigger finger, left middle finger; Z09 Encounter for follow-up examination after completed treatment for conditions other than malignant neoplasm; Z87.39 Personal history of other diseases of the musculoskeletal system and connective tissue; Z86.69 Personal history of other diseases of the nervous system and sense organs | CPT/HCPCS: 99212 ==